=== PATIENT | female | born 1945 | race American Indian/Alaskan Native ===

== ENCOUNTER 2016-12-11 10:07 | Observation (INO) | payer MEDICARE, OTHER ==
--- NOTE | 2016-12-11 11:15 | ED PDOC ---
Addendum entered and electronically signed by Haris Liu DO 15:29: Diag/Dispo/POA - Present on Admission Any Indicators Present on Admission: No - Discharge Diagnosis: Hypokalemia, Shortness of breath Disposition: HOSPITALIZED Time Seen by Provider: 12/11/16 10:34 Original Note: Arrival/HPI - General Historian: Patient - History of Present Illness Symptom Onset: Gradual Symptom Course: Unchanged <Haris Liu - Last Filed: 12/11/16 15:28> <CarrieHenok L - Last Filed: 12/11/16 18:10> - General Chief Complaint: Shortness Of Breath Time Seen by Provider: 12/11/16 10:34 - History of Present Illness Narrative History of Present Illness (Text): 12/11/16 11:10 71F w/ no pertinent PMHx presents with 4 days of status quo sob. Patient states that it has not gotten better or worse but that it has persisted, and is associated with a non-productive cough. She states that she has never had episodes of sob in the past. Patient describes episodes of physical activity that result in palpitations; if she starts talking during these episodes, the sob starts, as well as the cough. She states that the activity can be as benign as walking around. Patient denies f/ch/cp/n/v/d. She further denies recent sick contacts as well as b/l calf pain or leg swelling. Patient denies any history of copd or asthma, denies smoking cigarettes, and denies hemoptysis or hematemesis. Further denies hematochezia, hematuria. 12/11/16 11:19 (Haris Liu) Past Medical History - Infectious Disease Hx of Infectious Diseases: None - Cardiac Hx Cardiac Disorders: Yes Hx Hypertension: Yes Hx Pacemaker: No - Pulmonary Hx Respiratory Disorders: No - Neurological Hx Neurological Disorder: No Hx Paralysis: No - HEENT Hx HEENT Disorder: No - Renal Hx Renal Disorder: No - Endocrine/Metabolic Hx Endocrine Disorders: Yes Hx Diabetes Mellitus Type 2: Yes - Hematological/Oncological Hx Blood Disorders: No Hx Blood Transfusions: No Hx Blood Transfusion Reaction: No - Integumentary Hx Dermatological Disorder: No - Musculoskeletal/Rheumatological Hx Musculoskeletal Disorders: Yes Hx Arthritis: Yes - Gastrointestinal Hx Gastrointestinal Disorders: No - Genitourinary/Gynecological Hx Genitourinary Disorders: No - Psychiatric Hx Psychophysiologic Disorder: No Hx Substance Use: No - Surgical History Hx Hysterectomy: Yes Other/Comment: ovarian cyst - Anesthesia Hx Anesthesia Reactions: No Hx Malignant Hyperthermia: No - Suicidal Assessment Feels Threatened In Home Enviroment: No <Haris Liu - Last Filed: 12/11/16 15:28> Family/Social History Family/Social History: Diabetes, Hypertension Smoking Status: Former Smoker Hx Alcohol Use: No Hx Substance Use: No <Haris Liu - Last Filed: 12/11/16 15:28> Allergies/Home Meds <Haris Liu - Last Filed: 12/11/16 15:28> <Addi Butlermiley Grajeda - Last Filed: 12/11/16 18:10> Allergies/Adverse Reactions: Allergies No Known Allergies Allergy (Verified 04/21/16 07:30) Home Medications: Home Meds Medication Instructions Recorded Confirmed Aspirin [Ecotrin] 81 mg PO DAILY 11/11/15 12/11/16 Enalapril/Hydrochlorothiazide 1 tab PO DAILY 04/21/16 12/11/16 [Enalapril-Hctz 10-25 mg Tablet] SITagliptin [Januvia] 25 mg PO DAILY 04/21/16 12/11/16 Review of Systems - Review of Systems Constitutional: Normal. absent: Fatigue, Weight Change, Fevers Eyes: Normal. absent: Vision Changes ENT: Normal. absent: Sore Throat, Rhinorrhea Respiratory: SOB, Cough Cardiovascular: Normal, VAN. absent: Chest Pain, Edema, Calf Pain, Orthopnea Gastrointestinal: Normal. absent: Abdominal Pain, Stool Changes, Constipation, Diarrhea, Nausea, Vomiting, Hematochezia, Hematemesis Genitourinary Female: Normal. absent: Hematuria, Vaginal Bleeding Musculoskeletal: Normal. absent: Back Pain, Neck Pain Skin: Normal. absent: Rash, Pruritis, Skin Lesions Neurological: Normal. absent: Headache, Dizziness, Focal Weakness, Gait Changes , Speech Changes Endocrine: Normal. absent: Diaphoresis, Polyuria, Polydipsia Hemo/Lymphatic: Normal. absent: Easy Bleeding, Easy Bruising Psychiatric: Normal. absent: Anxiety, Depression, Suicidal Ideation <Haris Liu - Last Filed: 12/11/16 15:28> Physical Exam Vital Signs Reviewed: Yes Temperature: Afebrile Blood Pressure: Normal Pulse: Regular Respiratory Rate: Normal Appearance: Positive for: Well-Appearing, Non-Toxic, Comfortable Pain Distress: None Mental Status: Positive for: Alert and Oriented X 3 - Systems Exam Head: Present: Atraumatic, Normocephalic. No: Tenderness, Contusion, Swelling Pupils: Present: PERRL. No: Sluggish Extroacular Muscles: Present: EOMI Conjunctiva: Present: Normal Mouth: Present: Moist Mucous Membranes Pharnyx: Present: Normal. No: ERYTHEMA, EXUDATE, Muffled/Hoarse Voice, Strider Nose (Internal): Present: Normal Inspection. No: Rhinorrhea, Purulent Mucous Neck: Present: Normal Range of Motion Respiratory/Chest: Present: Clear to Auscultation, Good Air Exchange. No: Respiratory Distress, Accessory Muscle Use, Decreased Breath Sounds, Rales, Retracting, Rhonchi, Tachypneic Cardiovascular: Present: Regular Rate and Rhythm, Normal S1, S2. No: Murmurs Abdomen: Present: Normal Bowel Sounds. No: Tenderness, Distention, Peritoneal Signs, Rebound, Guarding Back: Present: Normal Inspection Upper Extremity: Present: Normal Inspection. No: Cyanosis, Edema Lower Extremity: Present: Normal Inspection. No: Edema Neurological: Present: GCS=15, CN II-XII Intact, Speech Normal Skin: Present: Warm, Dry, Normal Color. No: Rashes Psychiatric: Present: Alert, Oriented x 3, Normal Insight, Normal Concentration <Haris Liu - Last Filed: 12/11/16 15:28> Medical Decision Making <Haris Liu - Last Filed: 12/11/16 15:28> <Henok Butler - Last Filed: 12/11/16 18:10> ED Course and Treatment: 12/11/16 11:25 Impression: 71 y/o AA F with PMHx of HTN, DM, Colonic polyps, presents with 4 day duration of sob. PE vs Pneumothorax vs ACS vs PNA vs DKA vs Tox vs Unknown Plan: -- CBC, CMP (has blood glucose level as well) -- CXR -- EKG -- Tropes -- D-Dimer, Coags -- BNP --Reassess Prior Visits: Notes and results from previous visits were reviewed. 12/11/16 11:29 Pt reassessed and found to be hypokalemic. CXR, EKG, Tropes, D-Dimer, BNP, and Coags all non-significant. Pt admitted for hypokalemia (2.8). Was given 40 PO in the ED. 12/11/16 15:20 (Haris Liu) In agreement with resident note, which includes further HPI details. Patient was seen and evaluated with resident, came up with plan and treatment together. EKG: Ordered, reviewed, and independently interpreted the EKG. Rate : 72 BPM Rhythm : NSR Interpretation : LVH. Comparison : No previous EKG for comparison. 12/11/16 12:[address] Acevedo who will place the patient on telemetry observation for hypokalemia and possible ACS. I discussed case with patient's PMD as well Dr. Fisher who recommended prednisone and albuterol that perhaps this is bronchospasm. (Henok Butler) - Lab Interpretations Microbiology Results: Microbiology Results 12/11/16 11:40 Sputum Gram Stain - Final Lab Results: 12/11/16 11:30 12/11/16 11:30 Lab Results 12/11/16 11:30: TSH 3rd Generation 0.32 L 12/11/16 11:30: PT 11.5, INR 1.06, APTT 25.8, D-Dimer, Quantitative 0.30 12/11/16 11:30: Sodium 142, Potassium 2.9 L* D, Chloride 102, Carbon Dioxide 30 , Anion Gap 13, BUN 18, Creatinine 0.7, Est GFR ( Amer) > 60, Est GFR ( Non-Af Amer) > 60, Random Glucose 150 H, Calcium 9.5, Phosphorus 2.6, Magnesium 2.0, Total Bilirubin 0.9, AST 29, ALT 39, Alkaline Phosphatase 40, Troponin I < 0.01, NT-Pro-B Natriuret Pep 182, Total Protein 7.0, Albumin 4.0, Globulin 2.9, Albumin/Globulin Ratio 1.4 12/11/16 11:30: WBC 6.9, RBC 4.03, Hgb 11.7 L, Hct 34.6 L, MCV 85.9, MCH 29.0, MCHC 33.8, RDW 15.2 H, Plt Count 253, MPV 9.7, Gran % 69.1 H, Lymph % (Auto) 25.6, [place] % (Auto) 4.6, Eos % (Auto) 0.6 L, Baso % (Auto) 0.1, Gran # 4.77, Lymph # 1.8, [place] # 0.3, Eos # 0.0, Baso # 0.01 - RAD Interpretation Radiology Orders: 12/11/16 11:07 CHEST PORTABLE [RAD] Stat - Medication Orders Current Medication Orders: Acetaminophen (Tylenol 325mg Tab) 650 mg PO Q4H PRN PRN Reason: Pain, Mild (1-3) Aspirin (Ecotrin) 81 mg PO DAILY REGINA Lisinopril (Zestril) 10 mg PO DAILY REGINA Ondansetron HCl (Zofran Inj) 4 mg IVP Q4H PRN PRN Reason: Nausea/Vomiting Pantoprazole Sodium (Protonix Ec Tab) 40 mg PO DAILY REGINA Sitagliptin Phosphate (Januvia) 25 mg PO DAILY REGINA Discontinued Medications Potassium Chloride (K-Dur 20 Meq Er Tab) 40 meq PO STAT STA Stop: 12/11/16 12:00 Last Admin: 12/11/16 12:22 Dose: 40 meq Potassium Chloride (Klor-Con 10) 40 meq PO STAT STA Stop: 12/11/16 16:23 Last Admin: 12/11/16 16:38 Dose: 40 meq Prednisone (Prednisone Tab) 60 mg PO STAT STA Stop: 12/11/16 12:38 Last Admin: 12/11/16 14:05 Dose: 60 mg Disposition/Present on Arrival - Present on Arrival Any Indicators Present on Arrival: No History of DVT/PE: No History of Uncontrolled Diabetes: No Urinary Catheter: No History of Decub. Ulcer: No History Surgical Site Infection Following: None - Disposition Have Diagnosis and Disposition been Completed?: Yes Disposition Time: 12:40 <Haris Liu - Last Filed: 12/11/16 15:28> - Disposition Patient Plan: Observation <Henok Butler - Last Filed: 12/11/16 18:10> - Disposition Diagnosis: Hypokalemia, Shortness of breath Disposition: HOSPITALIZED Patient Problems: Current Active Problems Problem Status Onset Hypokalemia Acute Shortness of breath Acute Condition: FAIR
[2016-12-11 11:38] LABS: BASO # 0.01 K/mm3 (0.0-2.0); BASO % 0.1 % (0.0-3.0); EOS % 0.6 % (1.5-5.0); GRAN # 4.77 (1.4-6.5); GRAN % 69.1 % (50.0-68.0); HEMATOCRIT 34.6 % (36.0-48.0); LYMPH # 1.8 (1.2-3.4); LYMPH % 25.6 % (22.0-35.0); MEAN CELL VOLUME 85.9 fl (80.0-105.0); MEAN CORPUSCULAR HGB CONC 33.8 g/dl (31.0-37.0); MEAN PLATELET VOLUME 9.7 fl (7.0-11.0); MONO # 0.3 (0.1-0.6); MONO % 4.6 % (1.0-6.0); RED CELL DISTRIBUTION WIDTH 15.2 % (11.5-14.5); WHITE BLOOD COUNT 6.9 10^3/ul (4.5-11.0)
[2016-12-11 11:50] LABS: ALB/GLOB RATIO 1.4 (1.1-1.8); ALKALINE PHOSPHATASE 40 U/L (38-133); ALT/SGPT 39 U/L (7-56); AST/SGOT 29 U/L (15-39); BILIRUBIN,TOTAL 0.9 mg/dL (0.2-1.3); BLOOD UREA NITROGEN 18 mg/dL (7-21); CALCIUM 9.5 mg/dL (8.4-10.5); CARBON DIOXIDE 30 mmol/L (21-33); CHLORIDE 102 mmol/L (98-107); GFR AFRICAN-AMERICAN > 60; GLUCOSE,RANDOM 150 mg/dL (70-110); SODIUM 142 mmol/L (132-148)
--- NOTE | 2016-12-11 11:55 | RAD ---
HISTORY: sob COMPARISON: 12/22/2015 FINDINGS: LUNGS: No active pulmonary disease. PLEURA: No significant pleural effusion identified, no pneumothorax apparent. CARDIOVASCULAR: Normal. OSSEOUS STRUCTURES: No significant abnormalities. VISUALIZED UPPER ABDOMEN: Normal. OTHER FINDINGS: None. IMPRESSION: No active disease.
[2016-12-11 11:56] LABS: INR 1.06 (0.93-1.08); PARTIAL THROMBOPLASTIN TIME 25.8 Seconds (23.7-30.8)
[2016-12-11 11:57] LABS: POTASSIUM 2.9 mmol/L (3.6-5.0)
[2016-12-11] MEDS ORDERED: Potassium Chloride 20 mEq ER Tab PO STA (11:59)
[2016-12-11 12:06] LABS: TROPONIN I < 0.01 ng/mL
[2016-12-11 12:12] LABS: D DIMER 0.3 mg/L FEU (0-0.50)
[2016-12-11 12:26] LABS: PHOSPHOROUS 2.6 mg/dL (2.5-4.5)
--- NOTE | 2016-12-11 12:56 | CARD ---
APPROVED REPORT EKG Measurement Heart [id number] <Conclusion> Normal sinus rhythm Left ventricular hypertrophy with repolarization abnormality Abnormal ECG
[2016-12-11] MEDS ORDERED: Potassium Chloride 10 mEq ER Tab PO STA (16:22)
--- NOTE | 2016-12-11 17:23 | CP.PCM.HP ---
<Melia Balderas - Last Filed: 12/11/16 17:20> History of Present Illness - History of Present Illness History of Present Illness: Pt is a 71 year old female who reports 4 day history of intermittent dyspnea associated with episodes of palpitations described as her "heart beating too fast" and "beating out of her chest". Patient states that her symptoms are sometimes brought on with talking or with increased exertion, but it sometimes occurs as rest as well. Patient states that she is still able to walk long distances, and only a few days ago, she was able to complete 5 laps [place] a track in the park without developing symptoms. She also reports that she sometimes has a nonproductive cough when she gets short of breath. Patient additionally reports that she has had intermittent episodes of dizziness when standing up from a laying position. Otherwise, denies chest pain, fevers, chills, leg swelling, recent travel, sick contacts, or orthopnea. She last had an echocardiogram done a few years ago, and has never had a stress test. PMD: Natalia PMHX: DM, HTN, arthritis, childhood asthma PSHX: Hysterectomy, cyst removal Meds: Januvia, ASA, Enalapril-HCTZ 10-25mg tab Allergies: NKDA Family hx: Brothers have DM, CAD requiring defibrillator, mother decreased at 58 years old from [place] Social hx: - former smoker, 2 cigarettes per day quit over 52 years old -denies EtOH abuse - denies recreational drugs - pt lives an active lifestyle ROS: General: Denies fever or chills HEENT: Denies rhinorrhea, post nasal drip, ringing in ears CV: (+) palpitations, denies chest pain Resp: (+) SOB, (+) cough GI: Denies abdominal pain, N/V/D : Denies dysuria MSK: Intermittent pain to the RLE, denies lower extremity swelling. Neuro: Denies focal weakness, imbalance with walking Psych: Denies depression Endocrine: Recent 2 lb weight loss over 2 lbs from DM Present on Admission - Present on Admission Any Indicators Present on Admission: No Past Patient History - Infectious Disease Hx of Infectious Diseases: None - Past Social History Smoking Status: Former Smoker - CARDIAC Hx Cardiac Disorders: Yes Hx Hypertension: Yes Hx Pacemaker: No - PULMONARY Hx Respiratory Disorders: No - NEUROLOGICAL Hx Neurological Disorder: No Hx Paralysis: No - HEENT Hx HEENT Problems: No - RENAL Hx Chronic Kidney Disease: No - ENDOCRINE/METABOLIC Hx Endocrine Disorders: Yes Hx Diabetes Mellitus Type 2: Yes - HEMATOLOGICAL/ONCOLOGICAL Hx Blood Disorders: No Hx Blood Transfusions: No Hx Blood Transfusion Reaction: No - INTEGUMENTARY Hx Dermatological Problems: No - MUSCULOSKELETAL/RHEUMATOLOGICAL Hx Musculoskeletal Disorders: Yes Hx Arthritis: Yes - GASTROINTESTINAL Hx Gastrointestinal Disorders: No - GENITOURINARY/GYNECOLOGICAL Hx Genitourinary Disorders: No - PSYCHIATRIC Hx Psychophysiologic Disorder: No Hx Substance Use: No - SURGICAL HISTORY Hx Hysterectomy: Yes Other/Comment: ovarian cyst - ANESTHESIA Hx Anesthesia Reactions: No Hx Malignant Hyperthermia: No Meds Allergies/Adverse Reactions: Allergies Allergy/AdvReac Type Severity Reaction Status Date / Time No Known Allergies Allergy Verified 04/21/16 07:30 Physical Exam - Constitutional Appears: Non-toxic, No Acute Distress - Head Exam Head Exam: ATRAUMATIC, NORMAL INSPECTION, NORMOCEPHALIC - Eye Exam Eye Exam: EOMI, Normal appearance - ENT Exam ENT Exam: Mucous Membranes Moist - Neck Exam Neck exam: Negative for: Thyromegaly - Respiratory Exam Respiratory Exam: Clear to Auscultation Bilateral, NORMAL BREATHING PATTERN. absent: Rales, Rhonchi, Wheezes, Stridor - Cardiovascular Exam Cardiovascular Exam: RRR, +S1, +S2 - GI/Abdominal Exam GI & Abdominal Exam: Normal Bowel Sounds, Soft. absent: Tenderness - Extremities Exam Extremities exam: Positive for: normal capillary refill, pedal pulses present. Negative for: pedal edema - Neurological Exam Neurological exam: Alert, Oriented x3 - Psychiatric Exam Psychiatric exam: Normal Affect, Normal Mood Results - Vital Signs Recent Vital Signs: Last Vital Signs Temp 98.0 F 12/11/16 12:39 Pulse 66 12/11/16 12:39 Resp 19 12/11/16 12:39 BP 125/88 12/11/16 12:39 Pulse Ox 100 12/11/16 12:39 - Labs Result Diagrams: 12/11/16 11:30 12/11/16 11:30 Assessment & Plan - Assessment and Plan (Free Text) Assessment: 71 year old female with PMHx of Asthma, Diabetes, and HTN who presented with Dyspnea with associated palpitations and dizziness. Symptoms are likely related to medication use. CXR was unremarkable. BNP was WNL @ 182 EKG showed NSR, LVH with repolarization abnormalities. K+ on admission was 2.9 (replaced). TSH was 0.34; free T3/T4 ordered. Will follow up on results in morning. Patient was on Enalapril/HCTZ combo for HTN. We will hold her HZTZ, start lisinopril and monitor her on telemetry. Plan: 1. Dyspnea -CXR -Echo -orthostatics 2. Palpitations -Echo -Cardio Consult - K+ was 2.9. Replaced. -Telemetry monitoring. - TSH (0.32); Free T3/T4 ordered. 3. Dizziness -held home HCTZ -Monitor. -Orthostatics. 4. Hx of HTN -Stopped home Enalapril/HCTZ combo -Start Lisinopril 4. Hx of Diabetes -Cont. home Janumet. GI/DVT proph Protonix/SCD's Patient seen, discussed, and reviewed with attending. Melia Balderas PGY-1 - Date & Time Date: 12/11/16 Time: 17:41 <Kristina NARAYANAN,Dung - Last Filed: 12/12/16 14:50> Results - Vital Signs Recent Vital Signs: Last Vital Signs Temp 97.8 F 12/12/16 08:26 Pulse 72 12/12/16 10:00 Resp 19 12/12/16 08:26 BP 138/88 12/12/16 09:13 Pulse Ox 97 12/12/16 08:26 - Labs Result Diagrams: 12/11/16 19:55 12/12/16 07:00 Labs: Laboratory Results - last 24 hr 12/11/16 12/11/16 12/11/16 19:55 19:55 21:25 WBC 11.3 H D RBC 4.47 Hgb 13.0 Hct 38.0 MCV 85.0 MCH 29.1 MCHC 34.2 RDW 15.1 H Plt Count 275 MPV 9.5 Sodium 141 Potassium 3.3 L Chloride 101 Carbon Dioxide 28 Anion Gap 15 BUN 17 Creatinine 0.8 Est GFR ( Amer) > 60 Est GFR (Non-Af Amer) > 60 POC Glucose (mg/dL) Random Glucose 222 H Calcium 10.0 Total Bilirubin 0.7 AST 31 ALT 36 Alkaline Phosphatase 48 Total Protein 7.6 Albumin 4.4 Globulin 3.3 Albumin/Globulin Ratio 1.3 Thyroxine (T4) 9.8 Total T3 1.33 12/12/16 12/12/16 07:00 11:45 WBC RBC Hgb Hct MCV MCH MCHC RDW Plt Count MPV Sodium 142 Potassium 3.7 Chloride 105 Carbon Dioxide 28 Anion Gap 13 BUN 19 Creatinine 0.7 Est GFR ( Amer) > 60 Est GFR (Non-Af Amer) > 60 POC Glucose (mg/dL) 103 Random Glucose 118 H Calcium 9.4 Total Bilirubin 1.0 AST 27 ALT 30 Alkaline Phosphatase 48 Total Protein 7.2 Albumin 3.9 Globulin 3.3 Albumin/Globulin Ratio 1.2 Thyroxine (T4) Total T3 Attending/Attestation - Attestation I have personally seen and examined this patient.: Yes I have fully participated in the care of the patient.: Yes I have reviewed all pertinent clinical information: Yes Notes (Text): 12/12/16 14:41 Patient was seen and examined with medical office receptionist. Agreed with resident assessment and plan. 71 year old female with PMHx of Asthma, Diabetes, and HTN was admitted with history of dyspnea on exertion associated with palpitation.Patient lung sound are clear. she is not wheezing, clinically she is not in Overt CHF.D domer is normal.The etiology of patient symptoms is not clear, we will admit in tele to monitor for arrhythmia, will repeat cardiac enzyme , will get Echo and cardiology evaluation.May need out patient Holter monitor. Patient TSH level is low but T3 and T 4 are normal, has subclinical hyperthyroidism, will need repeat Thyroid function in 6 weeks. Management plan was discussed in detail with patient Education was provided.
[2016-12-11 20:15] LABS: MEAN CORPUSCULAR HEMOGLOBIN 29.1 pg (25.0-35.0); MEAN CORPUSCULAR HGB CONC 34.2 g/dl (31.0-37.0); MEAN PLATELET VOLUME 9.5 fl (7.0-11.0); RED CELL DISTRIBUTION WIDTH 15.1 % (11.5-14.5); WHITE BLOOD COUNT 11.3 10^3/ul (4.5-11.0)
[2016-12-11 20:33] LABS: T4 9.8 ug/dL (5.5-11.0)
[2016-12-11 20:47] LABS: T3 1.33 ng/mL (0.97-1.69)
[2016-12-11 21:38] LABS: ALB/GLOB RATIO 1.3 (1.1-1.8); ALKALINE PHOSPHATASE 48 U/L (38-133); ALT/SGPT 36 U/L (7-56); AST/SGOT 31 U/L (15-39); BILIRUBIN,TOTAL 0.7 mg/dL (0.2-1.3); BLOOD UREA NITROGEN 17 mg/dL (7-21); CARBON DIOXIDE 28 mmol/L (21-33); CHLORIDE 101 mmol/L (98-107); GFR AFRICAN-AMERICAN > 60; GLUCOSE,RANDOM 222 mg/dL (70-110); POTASSIUM 3.3 mmol/L (3.6-5.0); SODIUM 141 mmol/L (132-148); TOTAL PROTEIN 7.6 g/dL (5.8-8.3)
[2016-12-11 22:03] VITALS: BMI 26.1
[2016-12-11] MEDS ORDERED: Pneumococcal 23-Valent Vaccine IM ONE (22:03)
[2016-12-12] MEDS ORDERED: Potassium Chloride 20 mEq ER Tab PO STA (01:42)
[2016-12-12 07:50] LABS: ALB/GLOB RATIO 1.2 (1.1-1.8); ALKALINE PHOSPHATASE 48 U/L (38-133); ALT/SGPT 30 U/L (7-56); AST/SGOT 27 U/L (15-39); BLOOD UREA NITROGEN 19 mg/dL (7-21); CALCIUM 9.4 mg/dL (8.4-10.5); CARBON DIOXIDE 28 mmol/L (21-33); CHLORIDE 105 mmol/L (95-110); GFR AFRICAN-AMERICAN > 60; GLUCOSE,RANDOM 118 mg/dL (70-110); POTASSIUM 3.7 mmol/L (3.6-5.0); SODIUM 142 mmol/L (132-148); TOTAL PROTEIN 7.2 g/dL (5.8-8.3)
[2016-12-12] MEDS ORDERED: Pantoprazole 40 mg EC Tab PO SCH (10:00)
[2016-12-12 16:02] VITALS: BP 128/70; PULSE 68; RESP 18; TEMP 98.6; O2SAT 100
[2016-12-12] MEDS ORDERED: Potassium Chloride 20 mEq ER Tab PO ONE (16:19)
--- NOTE | 2016-12-12 18:29 | CARD ---
APPROVED REPORT EXAM: Two-dimensional and M-mode echocardiogram with Doppler and color Doppler. INDICATION Palpitations 2D DIMENSIONS Left Atrium (2D)5.4 (1.6-4.0cm)IVSd1.0 (0.7-1.1cm) LVDd4.4 (3.9-5.9cm)PWd1.1 (0.7-1.1cm) LVDs3.0 (2.5-4.0cm)FS (%) 30.4 % LVEF (%)58.1 (>50%) M-Mode DIMENSIONS Aortic Root2.80 (2.2-3.7cm)Aortic Cusp Exc.1.60 (1.5-2.0cm) Aortic Valve AoV Peak Cmpvhlxy989.0cm/Tony Peak GR.9mmHg Mitral Valve MV E Ltmzclrp61.8cm/sMV A Malffpys82.8cm/sE/A ratio0.9 TDI Lateral E' Peak V11.20cm/sMedial E' Peak V6.43cm/sE/Lateral E'7.9 E/Medial E'13.8 Pulmonary Valve PV Peak Htndehck76.0cm/sPV Peak Grad.2mmHg Tricuspid Valve TR Peak Wcewadol001ma/sRAP [id number] Peak Gr.26mmHg [id number] LEFT VENTRICLE The left ventricle is normal size. There is normal left ventricular wall thickness. The left ventricular function is normal. The left ventricular ejection fraction is within the normal range. There is normal LV segmental wall motion. RIGHT VENTRICLE The right ventricular systolic function is normal. ATRIA The left atrium is moderately dilated. The right atrium is mildly dilated. The interatrial septum is intact with no evidence for an atrial septal defect. AORTIC VALVE The aortic valve is normal in structure. No aortic regurgitation is present. There is no aortic valvular stenosis. MITRAL VALVE The mitral valve is mildly thickened. There is no mitral valve regurgitation noted. TRICUSPID VALVE The tricuspid valve is normal in structure. There is mild tricuspid regurgitation. PULMONIC VALVE The pulmonary valve is normal in structure. GREAT VESSELS The aortic root is normal in size. The IVC is normal in size and collapses >50% with inspiration. PERICARDIAL EFFUSION There is no pleural effusion. There is no pericardial effusion. <Conclusion> Biatrial enlargement. Normal LV size and systolic function. Mild TR.
--- NOTE | 2016-12-12 20:43 | CP.PCM.DIS ---
<Melia Balderas - Last Filed: 12/12/16 20:39> Provider - Provider Date of Admission: 12/11/16 12:40 Attending physician: Dung Acevedo MD Consults: Cardiology - Dr. Dias. Time Spent in preparation of Discharge (in minutes): 35 Hospital Course - Lab Results Lab Results: Most Recent Lab Values WBC 11.3 10^3/ul (4.5-11.0) H D 12/11/16 19:55 RBC 4.47 10^6/uL (3.5-6.1) 12/11/16 19:55 Hgb 13.0 g/dL (12.0-16.0) 12/11/16 19:55 Hct 38.0 % (36.0-48.0) 12/11/16 19:55 MCV 85.0 fl (80.0-105.0) 12/11/16 19:55 MCH 29.1 pg (25.0-35.0) 12/11/16 19:55 MCHC 34.2 g/dl (31.0-37.0) 12/11/16 19:55 RDW 15.1 % (11.5-14.5) H 12/11/16 19:55 Plt Count 275 10^3/uL (120.0-450.0) 12/11/16 19:55 MPV 9.5 fl (7.0-11.0) 12/11/16 19:55 Gran % 69.1 % (50.0-68.0) H 12/11/16 11:30 Lymph % (Auto) 25.6 % (22.0-35.0) 12/11/16 11:30 Emery % (Auto) 4.6 % (1.0-6.0) 12/11/16 11:30 Eos % (Auto) 0.6 % (1.5-5.0) L 12/11/16 11:30 Baso % (Auto) 0.1 % (0.0-3.0) 12/11/16 11:30 Gran # 4.77 (1.4-6.5) 12/11/16 11:30 Lymph # 1.8 (1.2-3.4) 12/11/16 11:30 Emery # 0.3 (0.1-0.6) 12/11/16 11:30 Eos # 0.0 (0.0-0.7) 12/11/16 11:30 Baso # 0.01 K/mm3 (0.0-2.0) 12/11/16 11:30 PT 11.5 Seconds (9.9-11.8) 12/11/16 11:30 INR 1.06 (0.93-1.08) 12/11/16 11:30 APTT 25.8 Seconds (23.7-30.8) 12/11/16 11:30 D-Dimer, Quantitative 0.30 mg/L FEU (0-0.50) 12/11/16 11:30 Sodium 142 mmol/L (132-148) 12/12/16 07:00 Potassium 3.7 mmol/L (3.6-5.0) 12/12/16 07:00 Chloride 105 mmol/L (95-110) 12/12/16 07:00 Carbon Dioxide 28 mmol/L (21-33) 12/12/16 07:00 Anion Gap 13 (10-20) 12/12/16 07:00 BUN 19 mg/dL (7-21) 12/12/16 07:00 Creatinine 0.7 mg/dL (0.5-1.4) 12/12/16 07:00 Est GFR ( Amer) > 60 12/12/16 07:00 Est GFR (Non-Af Amer) > 60 12/12/16 07:00 POC Glucose (mg/dL) 131 mg/dL (65-110) H 12/12/16 15:58 Random Glucose 118 mg/dL (70-110) H 12/12/16 07:00 Calcium 9.4 mg/dL (8.4-10.5) 12/12/16 07:00 Phosphorus 2.6 mg/dL (2.5-4.5) 12/11/16 11:30 Magnesium 2.0 mg/dL (1.7-2.2) 12/11/16 11:30 Total Bilirubin 1.0 mg/dL (0.2-1.3) 12/12/16 07:00 AST 27 U/L (15-39) 12/12/16 07:00 ALT 30 U/L (7-56) 12/12/16 07:00 Alkaline Phosphatase 48 U/L (38-133) 12/12/16 07:00 Troponin I < 0.01 ng/mL 12/11/16 11:30 NT-Pro-B Natriuret Pep 182 pg/mL (0-450) 12/11/16 11:30 Total Protein 7.2 g/dL (5.8-8.3) 12/12/16 07:00 Albumin 3.9 g/dL (3.0-4.8) 12/12/16 07:00 Globulin 3.3 gm/dL 12/12/16 07:00 Albumin/Globulin Ratio 1.2 (1.1-1.8) 12/12/16 07:00 Thyroxine (T4) 9.8 ug/dL (5.5-11.0) 12/11/16 19:55 Total T3 1.33 ng/mL (0.97-1.69) 12/11/16 19:55 TSH 3rd Generation 0.32 mIU/mL (0.46-4.68) L 12/11/16 11:30 - Hospital Course Hospital Course: 71 year old female with PMHx of Asthma, Diabetes, and HTN who presented with Dyspnea with associated palpitations and dizziness. CXR was unremarkable. BNP was WNL @ 182 EKG showed NSR, LVH with repolarization abnormalities. K+ on admission was 2.9 (replaced). D-dimer was normal. Troponin lvls were less than 0.01. Echo showed Biatrial enlargement, normal LV size and systolic function, and mild tricuspid regurgitation. TSH was 0.34; free T3/T4 ordered and was WNL. Patient has subclinical Hyperthyroidism. Discussed the need for repeat thyroid function test in 6 weeks. HCTZ was held during stay. No overnight events reported. No abnormalities reported on telemetry. Patient had resolution of all symptoms during admission. Will prescribe potassium supplementation (KCl). She is to follow up with primary physician within 1 week and follow up with [facility] for outpatient stress test. Patient agreeable to plan and supplementation. Patient seen, discussed, and reviewed with Attending. Melia Balderas PGY1 - Date & Time of H&P Date of H&P: 12/12/16 Time of H&P: 11:00 Discharge Exam - Head Exam Head Exam: ATRAUMATIC, NORMAL INSPECTION, NORMOCEPHALIC - Eye Exam Eye Exam: EOMI, Normal appearance - ENT Exam ENT Exam: Mucous Membranes Moist - Respiratory Exam Respiratory Exam: Clear to PA & Lateral - Cardiovascular Exam Cardiovascular Exam: RRR, +S1, +S2 - GI/Abdominal Exam GI & Abdominal Exam: Normal Bowel Sounds, Soft. absent: Tenderness - Psychiatric Exam Psychiatric exam: Normal Affect, Normal Mood Discharge Plan - Discharge Medications Prescriptions: Potassium Chloride [K-Dur 20] 20 meq PO DAILY #15 tab - Follow Up Plan Condition: FAIR Disposition: HOME/ ROUTINE Instructions: Hypokalemia (GEN) Additional Instructions: Discharge instructions: - follow up with primary care doctor in 1 week - repeat TSH in 6 weeks - follow up with [facility] for outpatient stress test New medcations Potassium Chloride 20meq daily Referrals: Vincent Hdez MD [Staff Provider] - <Kristina NARAYANAN,Dung - Last Filed: 12/13/16 15:40> Provider - Provider Date of Admission: 12/11/16 12:40 Attending physician: Dung Acevedo MD Hospital Course - Lab Results Lab Results: Most Recent Lab Values WBC 11.3 10^3/ul (4.5-11.0) H D 12/11/16 19:55 RBC 4.47 10^6/uL (3.5-6.1) 12/11/16 19:55 Hgb 13.0 g/dL (12.0-16.0) 12/11/16 19:55 Hct 38.0 % (36.0-48.0) 12/11/16 19:55 MCV 85.0 fl (80.0-105.0) 12/11/16 19:55 MCH 29.1 pg (25.0-35.0) 12/11/16 19:55 MCHC 34.2 g/dl (31.0-37.0) 12/11/16 19:55 RDW 15.1 % (11.5-14.5) H 12/11/16 19:55 Plt Count 275 10^3/uL (120.0-450.0) 12/11/16 19:55 MPV 9.5 fl (7.0-11.0) 12/11/16 19:55 Gran % 69.1 % (50.0-68.0) H 12/11/16 11:30 Lymph % (Auto) 25.6 % (22.0-35.0) 12/11/16 11:30 Emery % (Auto) 4.6 % (1.0-6.0) 12/11/16 11:30 Eos % (Auto) 0.6 % (1.5-5.0) L 12/11/16 11:30 Baso % (Auto) 0.1 % (0.0-3.0) 12/11/16 11:30 Gran # 4.77 (1.4-6.5) 12/11/16 11:30 Lymph # 1.8 (1.2-3.4) 12/11/16 11:30 Emery # 0.3 (0.1-0.6) 12/11/16 11:30 Eos # 0.0 (0.0-0.7) 12/11/16 11:30 Baso # 0.01 K/mm3 (0.0-2.0) 12/11/16 11:30 PT 11.5 Seconds (9.9-11.8) 12/11/16 11:30 INR 1.06 (0.93-1.08) 12/11/16 11:30 APTT 25.8 Seconds (23.7-30.8) 12/11/16 11:30 D-Dimer, Quantitative 0.30 mg/L FEU (0-0.50) 12/11/16 11:30 Sodium 142 mmol/L (132-148) 12/12/16 07:00 Potassium 3.7 mmol/L (3.6-5.0) 12/12/16 07:00 Chloride 105 mmol/L (95-110) 12/12/16 07:00 Carbon Dioxide 28 mmol/L (21-33) 12/12/16 07:00 Anion Gap 13 (10-20) 12/12/16 07:00 BUN 19 mg/dL (7-21) 12/12/16 07:00 Creatinine 0.7 mg/dL (0.5-1.4) 12/12/16 07:00 Est GFR ( Amer) > 60 12/12/16 07:00 Est GFR (Non-Af Amer) > 60 12/12/16 07:00 POC Glucose (mg/dL) 131 mg/dL (65-110) H 12/12/16 15:58 Random Glucose 118 mg/dL (70-110) H 12/12/16 07:00 Calcium 9.4 mg/dL (8.4-10.5) 12/12/16 07:00 Phosphorus 2.6 mg/dL (2.5-4.5) 12/11/16 11:30 Magnesium 2.0 mg/dL (1.7-2.2) 12/11/16 11:30 Total Bilirubin 1.0 mg/dL (0.2-1.3) 12/12/16 07:00 AST 27 U/L (15-39) 12/12/16 07:00 ALT 30 U/L (7-56) 12/12/16 07:00 Alkaline Phosphatase 48 U/L (38-133) 12/12/16 07:00 Troponin I < 0.01 ng/mL 12/11/16 11:30 NT-Pro-B Natriuret Pep 182 pg/mL (0-450) 12/11/16 11:30 Total Protein 7.2 g/dL (5.8-8.3) 12/12/16 07:00 Albumin 3.9 g/dL (3.0-4.8) 12/12/16 07:00 Globulin 3.3 gm/dL 12/12/16 07:00 Albumin/Globulin Ratio 1.2 (1.1-1.8) 12/12/16 07:00 Thyroxine (T4) 9.8 ug/dL (5.5-11.0) 12/11/16 19:55 Total T3 1.33 ng/mL (0.97-1.69) 12/11/16 19:55 TSH 3rd Generation 0.32 mIU/mL (0.46-4.68) L 12/11/16 11:30 Attending/Attestation - Attestation I have personally seen and examined this patient.: Yes I have fully participated in the care of the patient.: Yes I have reviewed all pertinent clinical information, including history, physical exam and plan: Yes Notes (Text): 12/13/16 15:35 Patient was seen and examined with medical unit secretary. Agreed with resident assessment and plan. 71 year old female with PMH of Asthma ?, Diabetes, and HTN was admitted with history of dyspnea on exertion associated with palpitation.Patient lung sound are clear. she is not wheezing, clinically she is not in Overt CHF.D dimer is normal. Patient Echo showed normal systolic function.Telemetry is unremarkable for any arrhythmia. .Patient TSH level is low but T3 and T 4 are normal, has subclinical hyperthyroidism, will need repeat Thyroid function in 6 weeks. Patient is ambulatory, dyspnea has improved. Hypokalemia has improved. Patientwants to go home, she will follow up with cardiology, will need out patient stress test to rule out stress induced ischemia. Management plan was discussed in detail with patient Education was provided.
--- NOTE | 2016-12-13 07:27 | CON ---
DATE: 12/12/2016 REQUESTING PHYSICIAN: Dung Acevedo MD REASON FOR CONSULTATION: Palpitations and dyspnea. HISTORY OF PRESENT ILLNESS: This is a 71-year-old woman who presented to the emergency room complaining of dyspnea and palpitations for the past several days. She denied any associated chest pain. She states that over the past 4 days, she has had intermittent shortness of breath also associated with palpitations. She denied any syncope or lightheadedness. She denied any chest pain either. She does have a history of hypertension and diabetes. She has never had a stress test perform. She believe she had an echocardiogram performed several years ago, which was unremarkable by her accounts. PAST MEDICAL HISTORY: Past history is notable for the problems mentioned above. She had asthma in childhood. She also had prior hysterectomy. MEDICATIONS: Her medications at home included aspirin, enalapril, hydrochlorothiazide and Januvia. ALLERGIES: SHE HAS NO REPORTED ALLERGIES. FAMILY HISTORY: Mother at the age of 58 from myocardial infarction. Her father health history is unknown. One brother has a history of diabetes and coronary artery disease and defibrillator implant. SOCIAL HISTORY: She heavy smoked in the past, but quit many years ago. She denies alcohol use. REVIEW OF SYSTEMS: A 10-point review of systems is notable mainly from the problems mentioned above. PHYSICAL EXAMINATION: GENERAL: She is a middle age woman appears comfortable at the present time. VITAL SIGNS: Blood pressure is 138/80 with a pulse of 76, sinus and respirations of 14. She is currently afebrile. HEENT: Normocephalic and atraumatic. Pupils are equal and round to accommodation. NECK: Supple. No JVD noted. CHEST: Clear to auscultation and percussion. HEART: PMI in normal position with soft systolic murmur noted in the left sternal border. ABDOMEN: Soft and nontender with normoactive bowel sounds. EXTREMITIES: No edema. SKIN: Warm and dry. PSYCHIATRIC: Normal mood and affect. NEUROLOGIC: Alert and oriented x3. No gross motor or sensory deficits appreciated. DIAGNOSTIC DATA: Initial potassium is 3.3 repeat is 3.7. BUN and creatinine are 19 and 0.7. Initial glucose was 222 repeat is 118. White count 11.3, hemoglobin and hematocrit 13 and 38 with a platelet count of 275,000. Electrocardiogram reveals sinus rhythm with LVH with repolarization abnormalities. Chest x-ray reveals normal cardiac silhouette with clear lung diehl. On telemetry monitoring shows no evidence of dysrhythmia. IMPRESSION: 1. Palpitation and dyspnea, etiology uncertain. 2. Multiple cardiac risk factors given history of hypertension and diabetes as well as remote tobacco abuses and a family history of premature heart disease. RECOMMENDATIONS: 1. An echocardiogram has been ordered to assessed left ventricular size and function and rule out any significant valvular abnormalities. 2. Stress test would be appropriate at this time as well. 3. If she has no significant dysrhythmia, discharge home with outpatient followup can be planned. A 24 hour Holter monitor and 30-day vent monitor can be arranged. Thanks for this consultation. We will be happy to follow along as needed. Vincent Hdez MD
== END 2016-12-12 18:53 | disposition home or self-care (01) ==
LOC: ED 10:07 → ERH 12:40 → 3RSO 18:10
PROVIDERS: ADMIT Internal Medicine; ATTEND Internal Medicine
DX: R00.2 Palpitations (principal); E87.6 Hypokalemia; R42 Dizziness and giddiness; E05.90 Thyrotoxicosis, unspecified without thyrotoxic crisis or storm; J45.909 Unspecified asthma, uncomplicated; I10 Essential (primary) hypertension; E11.9 Type 2 diabetes mellitus without complications; M19.90 Unspecified osteoarthritis, unspecified site; Z79.84 Long term (current) use of oral hypoglycemic drugs; Z79.82 Long term (current) use of aspirin; Z82.49 Family history of ischemic heart disease and other diseases of the circulatory system; Z87.891 Personal history of nicotine dependence
CPT/HCPCS: 36415; 71010; 80053; 82948; 83735; 83880; 84100; 84436; 84443; 84480; 84484; 85025; 85027; 85378; 85610; 85730; 87040; 87070; 87181; 93005; 93306; 99285; G0378

== ENCOUNTER 2018-01-28 06:30 | Emergency (ER) | payer MEDICARE ==
[2018-01-28 06:39] VITALS: BMI 27.4
--- NOTE | 2018-01-28 07:24 | ED PDOC ---
Arrival/HPI - General Chief Complaint: Dizziness/Lightheaded Time Seen by Provider: 01/28/18 06:59 Historian: Patient - History of Present Illness Narrative History of Present Illness (Text): 01/28/18 07:17 72 year old female, with past medical history of diabetes, hypertension and arthritis, and past surgical history of hysterectomy and ovarian cyst removal, presents to the Emergency department accompanied by complaining of a sudden onset of dizziness associated with nausea since 4 am this morning. Patient describes the sensation as "room spinning" mildly exacerbated with specific movements of her head. Patient informs assistance with ambulation secondary to dizziness but denies any fall or trauma. Patient denies similar symptoms in the past prompting her to present to the ED for medical evaluation. Patient currently informs improved symptoms and denies any associated somatic complaints. Patient denies any fever, chills, vomiting, diarrhea, constipation, abdominal pain, urinary symptoms, chest pain, shortness of breath, headache, vision changes, neck pain, back pain, or any other complaints. PMD: Dr. Fisher Time/Duration: 1-3 hours Symptom Onset: Sudden Symptom Course: Improving Activities at Onset: Sleeping Context: Home Past Medical History - Provider Review Nursing Documentation Reviewed: Yes - Infectious Disease Hx of Infectious Diseases: None - Cardiac Hx Cardiac Disorders: Yes Hx Hypertension: Yes Hx Pacemaker: No Other/Comment: was taken off high cholesterol medication 2 yrs ago by pmd dr slade 2 yrs ago, all bloodwork has been normal since as per pt - Pulmonary Hx Respiratory Disorders: No - Neurological Hx Neurological Disorder: No - HEENT Hx HEENT Disorder: Yes (eyeglasses) - Renal Hx Renal Disorder: No - Endocrine/Metabolic Hx Endocrine Disorders: Yes Hx Diabetes Mellitus Type 2: Yes - Hematological/Oncological Hx Blood Disorders: No - Integumentary Other/Comment: right posterior ankle scar 2cm x 1cm darkened brown skin from removal of benign cyst - Musculoskeletal/Rheumatological Hx Musculoskeletal Disorders: Yes Hx Arthritis: Yes Hx Falls: No - Gastrointestinal Hx Gastrointestinal Disorders: Yes (peptic ulcer) Other/Comment: colonoscopy 11/15/15 dx colon polyps, post procedure dx hemorrhoids, pt denies ever having colon polyps - Genitourinary/Gynecological Hx Urinary Tract Infection: Yes - Psychiatric Hx Psychophysiologic Disorder: No Hx Substance Use: No - Surgical History Hx Hysterectomy: Yes (2003) Other/Comment: ovarian cyst 1984 - Anesthesia Hx Anesthesia: Yes Hx Anesthesia Reactions: No Hx Malignant Hyperthermia: No - Suicidal Assessment Feels Threatened In Home Enviroment: No Family/Social History - Physician Review Nursing Documentation Reviewed: Yes Family/Social History: No Known Family HX Smoking Status: Former Smoker Hx Alcohol Use: No Hx Substance Use: No Allergies/Home Meds Allergies/Adverse Reactions: Allergies No Known Allergies Allergy (Verified 04/21/16 07:30) Home Medications: Home Meds Medication Instructions Recorded Confirmed Aspirin [Ecotrin] 81 mg PO DAILY 11/11/15 01/28/18 Enalapril/Hydrochlorothiazide 1 tab PO DAILY 04/21/16 01/28/18 [Enalapril-Hctz 10-25 mg Tablet] Glimepiride [Amaryl] 1 mg PO DAILY 01/28/18 01/28/18 Review of Systems - Physician Review All systems were reviewed & negative as marked: Yes - Review of Systems Constitutional: absent: Fevers Eyes: absent: Vision Changes Respiratory: absent: SOB, Cough Cardiovascular: absent: Chest Pain Gastrointestinal: Nausea. absent: Abdominal Pain, Constipation, Diarrhea, Vomiting Genitourinary Female: absent: Dysuria, Hematuria, Urine Output Changes Musculoskeletal: absent: Back Pain, Neck Pain Neurological: Dizziness. absent: Headache Physical Exam Vital Signs Reviewed: Yes Vital Signs Temp Pulse Resp BP Pulse Ox 01/28/18 07:00 97.9 F 61 18 154/71 H 100 Temperature: Afebrile Blood Pressure: Hypertensive Pulse: Regular Respiratory Rate: Normal Appearance: Positive for: Well-Appearing, Non-Toxic, Comfortable Pain Distress: None Mental Status: Positive for: Alert and Oriented X 3 Finger Stick Blood Glucose: 137 - Systems Exam Head: Present: Atraumatic, Normocephalic Pupils: Present: PERRL Extroacular Muscles: Present: EOMI Conjunctiva: Present: Normal Ears: Present: NORMAL TM, Normal Canal. No: Erythema, TM Bulging Mouth: Present: Moist Mucous Membranes Pharnyx: Present: Normal Nose (External): Present: Atraumatic Neck: Present: Normal Range of Motion. No: Meningeal Signs, MIDLINE TENDERNESS, Paraspinal Tenderness, JVD Respiratory/Chest: Present: Clear to Auscultation, Good Air Exchange. No: Respiratory Distress, Accessory Muscle Use Cardiovascular: Present: Regular Rate and Rhythm, Normal S1, S2. No: Murmurs Abdomen: Present: Normal Bowel Sounds. No: Tenderness, Distention, Peritoneal Signs, Rebound, Guarding, McBurney's Point Tender Back: Present: Normal Inspection. No: CVA Tenderness, Midline Tenderness, Paraspinal Tenderness Upper Extremity: Present: Normal Inspection. No: Cyanosis, Edema Lower Extremity: Present: Normal Inspection. No: Edema Neurological: Present: GCS=15, CN II-XII Intact, Speech Normal, Motor Func Grossly Intact, Normal Sensory Function, Normal Cerebellar Funct, Gait Normal, Memory Normal Skin: Present: Warm, Dry, Normal Color. No: Rashes Psychiatric: Present: Alert, Oriented x 3, Normal Insight, Normal Concentration, Normal Affect Medical Decision Making ED Course and Treatment: 01/28/18 07:20 Impression: 72 year old female presents to the Emergency department complaining of dizziness since this morning. Normal Neuro exam, No cerebellar signs. Ambulating well in NAD. No tinnitus or trouble hearing. No trauma. No blood thinner usage. Nystagmus, horizontal, which fatigues. No rotary or vertical nystagmus. No meningeal signs. No light-headedness or chest pain. Differential Diagnosis included but are not limited to: BPV vs. labyrinthitis vs. Meniere's Plan: -- CT of Head -- EKG -- Labs -- Meclizine -- IV Fluids -- Urinalysis -- Reassess and disposition Prior Visits: Notes and results from previous visits were reviewed. Progress Notes: 01/28/18 07:25 EKG: Ordered, reviewed, and independently interpreted the EKG. Rate : 62 BPM Rhythm : NSR Interpretation : No ST-segment elevations or depressions, no T-wave inversions, normal intervals. No STEMI. 01/28/18 09:07 labs w/ hypoK, will replete Imaging unremarkable. Pt walked w/ normal gait around ED. Nystagmus resolve . No longer dizzy. Tolerating clears. Likely BPV. No central signs of vertigo on re- neuro exam. Given return precautions and follow up w/ neuro. Clear for d/c home. - Lab Interpretations Lab Results: Lab Results 01/28/18 06:43: POC Glucose (mg/dL) 137 H - RAD Interpretation Radiology Orders: 10/15/18 07:14 HEAD W/O CONTRAST [CT] Stat - EKG Interpretation Interpreted by ED Physician: Yes Type: 12 lead EKG - Medication Orders Current Medication Orders: Discontinued Medications Meclizine HCl (Antivert) 25 mg PO STAT STA Stop: 01/28/18 07:15 - Scribe Statement The provider has reviewed the documentation as recorded by the Scribe Jeanette Winston. All medical record entries made by the Scribe were at my direction and personally dictated by me. I have reviewed the chart and agree that the record accurately reflects my personal performance of the history, physical exam, medical decision making, and the department course for this patient. I have also personally directed, reviewed, and agree with the discharge instructions and disposition. Disposition/Present on Arrival - Present on Arrival Any Indicators Present on Arrival: No History of DVT/PE: No History of Uncontrolled Diabetes: No Urinary Catheter: No History of Decub. Ulcer: No History Surgical Site Infection Following: None - Disposition Have Diagnosis and Disposition been Completed?: Yes Diagnosis: BPV (benign positional vertigo), Hypokalemia Disposition: HOME/ ROUTINE Disposition Time: 08:09 Condition: GOOD Discharge Instructions (ExitCare): Vertigo (a Type of Dizziness), Hypokalemia, Vestibular Exercises Additional Instructions: EFRAIN LAO, thank you for letting us take care of you today. Your provider was Grady Fontana and you were treated for dizzy / weak. The emergency medical care you received today was directed at your acute symptoms. If you were prescribed any medication, please fill it and take as directed. It may take several days for your symptoms to resolve. Return to the Emergency Department if your symptoms worsen, do not improve, or if you have any other problems. Please contact your doctor or call one of the physicians/clinics you have been referred to that are listed on the Patient Visit Information form that is included in your discharge packet. Bring any paperwork you were given at discharge with you along with any medications you are taking to your follow up visit. Our treatment cannot replace ongoing medical care by a primary care provider outside of the emergency department. Thank you for allowing the [facility] team to be part of your care today. If you had an X-Ray or CT scan: A Radiologist will review the ED reading if any change in treatment is needed we will contact you. If you had a blood, urine, or wound culture: It will take several days for the results, if any change in treatment is needed we will contact you. If you had an STI test: It will take 48 hours for the results. Please call after 1 week if you have not heard back. Prescriptions: Meclizine [Meclizine*] 25 mg PO Q8H PRN 4 Days #12 tab PRN Reason: dizzy Referrals: Atul Taylor MD [Staff Provider] - Follow up with primary Doe Fisher MD [Family Provider] - Follow up with primary Forms: [employer] (Greenlandic)
[2018-01-28] MEDS ORDERED: Sodium Chloride 0.9% 1,000 ML IV SCH (07:30)
[2018-01-28 07:36] LABS: BASO # 0.01 K/mm3 (0.0-2.0); BASO % 0.1 % (0.0-3.0); EOS % 0.4 % (1.5-5.0); GRAN # 6.51 (1.4-6.5); GRAN % 79.7 % (50.0-68.0); HEMOGLOBIN 12.7 g/dL (12.0-16.0); LYMPH # 1.3 (1.2-3.4); LYMPH % 15.9 % (22.0-35.0); MEAN CELL VOLUME 86.9 fl (80.0-105.0); MEAN CORPUSCULAR HEMOGLOBIN 29.1 pg (25.0-35.0); MEAN CORPUSCULAR HGB CONC 33.5 g/dl (31.0-37.0); MEAN PLATELET VOLUME 9.6 fl (7.0-11.0); MONO # 0.3 (0.1-0.6); MONO % 3.9 % (1.0-6.0); RBC 4.36 10^6/uL (3.5-6.1); RED CELL DISTRIBUTION WIDTH 14.7 % (11.5-14.5); WHITE BLOOD COUNT 8.2 10^3/ul (4.5-11.0)
[2018-01-28 08:32] LABS: ALB/GLOB RATIO 1.1 (1.1-1.8); ALBUMIN 4.4 g/dL (3.0-4.8); ALT/SGPT 29 U/L (7-56); AST/SGOT 31 U/L (14-36); BLOOD UREA NITROGEN 22 mg/dL (7-21); CALCIUM 9.5 mg/dL (8.4-10.5); GFR NON-AFRICAN AMERICAN > 60
[2018-01-28 08:44] LABS: TROPONIN I < 0.01 ng/mL
[2018-01-28] MEDS ORDERED: Potassium Chloride 20 mEq ER Tab PO STA (08:47)
--- NOTE | 2018-01-28 08:51 | CT ---
Date of service: 01/28/2018 PROCEDURE: CT HEAD WITHOUT CONTRAST. HISTORY: dizzy COMPARISON: None available. TECHNIQUE: Axial computed tomography images were obtained through the head/brain without intravenous contrast. Radiation dose: Total exam DLP = 848.46 mGy-cm. This CT exam was performed using one or more of the following dose reduction techniques: Automated exposure control, adjustment of the mA and/or kV according to patient size, and/or use of iterative reconstruction technique. FINDINGS: HEMORRHAGE: No intracranial hemorrhage. BRAIN: No mass effect or edema. No atrophy or chronic microvascular ischemic changes. VENTRICLES: Unremarkable. No hydrocephalus. CALVARIUM: Unremarkable. PARANASAL SINUSES: Unremarkable as visualized. No significant inflammatory changes. MASTOID AIR CELLS: Unremarkable as visualized. No inflammatory changes. OTHER FINDINGS: None. IMPRESSION: Normal CT of the Head. No intracranial mass, hemorrhage or evidence of acute infarct.
[2018-01-28 09:34] LABS: PH,URINE 7.5 (4.7-8.0); URINE BILIRUBIN NEGATIVE (NEGATIVE); URINE BLOOD MODERATE (NEGATIVE); URINE GLUCOSE (UA) NEGATIVE (NEGATIVE); URINE LEUKOCYTE ESTERASE SMALL Leu/uL (NEGATIVE); URINE PROTEIN NEGATIVE mg/dL (<30 mg/dL); URINE UROBILINOGEN 0.2 E.U./dL (<1 E.U./dL)
[2018-01-28 09:35] LABS: URINE APPEARANCE CLEAR (CLEAR); URINE COLOR YELLOW (YELLOW)
[2018-01-28 09:51] LABS: URINE BACTERIA TRACE (NEG); URINE RBC 0 - 2 /hpf (0-2); URINE WBC 0 - 2 /hpf (0-6)
[2018-01-28 10:03] VITALS: BP 140/70; PULSE 67; RESP 19; TEMP 98; O2SAT 97
--- NOTE | 2018-01-28 14:48 | CARD ---
APPROVED REPORT Date of service: 01/28/2018 EKG Measurement Heart [id number] <Conclusion> Normal sinus rhythm Left axis deviation Moderate voltage criteria for LVH, may be normal variant Abnormal ECG
== END 2018-01-28 09:50 | disposition home or self-care (01) ==
LOC: ED 06:30
DX: H81.10 Benign paroxysmal vertigo, unspecified ear (principal); E87.6 Hypokalemia; I10 Essential (primary) hypertension; E11.9 Type 2 diabetes mellitus without complications; Z87.891 Personal history of nicotine dependence
CPT/HCPCS: 70450; 80053; 81001; 82948; 83735; 84484; 85025; 87086; 93005; 99285; J7030

== ENCOUNTER 2018-05-03 09:24 | Outpatient (CLI) | payer MEDICARE | END 2018-05-03 09:25 | disposition home or self-care (01) | LOC: RAD 09:24 ==